=== PATIENT | male | born 1960 | race Caucasian/White ===

== ENCOUNTER → 2017-03-26 08:10 | Outpatient (CLI) | payer OTHER, SELFPAY ==
[2017-03-26 09:27] LABS: AST(SGOT) 21 U/L (15-37); Alanine Aminotransfer ALT/SGPT 26 U/L (16-61); Albumin, Serum 3.7 g/dL (3.2-5.0); Alkaline Phosphatase 65 U/L (45-117); Bilirubin, Direct 0.29 mg/dL (0.00-0.30); Cholesterol 176 mg/dL (200); Globulin 3.7 g/dL (2.2-4.2); High Density Lipoprotein 63 mg/dL; Protein, Total 7.4 g/dL (6.4-8.2); Triglycerides 70 mg/dL; Very Low Density Lipoprotein 14 mg/dL (5-40)
== END ==
PROVIDERS: Family Provider Family Medicine; PCP Family Medicine; Visit Provider Internal Medicine Cardiovascular Disease
DX: E78.5 Hyperlipidemia, unspecified (principal)
CPT/HCPCS: 36415; 80061; 80076

== ENCOUNTER → 2017-05-02 13:54 | Outpatient (CLI) | payer OTHER, SELFPAY ==
--- NOTE | 2017-05-02 13:55 | ECHOD_ITS ---
Reason For Study: CHF Procedure This was a 2D Doppler, Color Flow transthoracic echocardiogram. Exam performed in department. Left Ventricle Normal LV size. The estimated ejection fraction is 40 %. Mild to moderate global left ventricular systolic dysfunction. Unable to assess diastolic dysfunction. Septal motion consistent with IVCD. Right Ventricle Normal RV size. Normal systolic function. Atria Normal left atrium. Normal right atrium. Mitral Valve Normal mitral valve. Tricuspid Valve Normal tricuspid valve. Aortic Valve The aortic valve is not well visualized. Pulmonic Valve The pulmonic valve is not well visualized. Great Vessels Mildly dilated aortic root. The pulmonary artery is normal size. Normal inferior vena cava. Pericardium/Pleural No pericardial effusion. MMode/2D Measurements & Calculations LVIDd: 4.8 cm IVSd: 1.1 cm Ao root diam: 3.8 cm LVIDs: 3.3 cm LVPWd: 0.77 cm RVDd: 3.7 cm FS: 31.6 % LAV(MOD-bp): 52.7 ml EDV(MOD-sp4): 147.8 ml SV(MOD-sp4): 74.2 ml LAV(MOD-bp) Indexed: 26.1 ml/m2 ESV(MOD-sp4): 73.7 ml LAV(MOD-sp2): 45.5 ml EF(MOD-sp4): 50.2 % LAV(MOD-sp4): 48.5 ml LA A4 area: 17.1 cm2 RA A4 area: 14.3 cm2 Doppler Measurements & Calculations MV E max hal: 54.0 cm/sec Ao V2 max: 125.0 cm/sec LV V1 max: 104.0 cm/sec MV A max hal: 61.6 cm/sec Ao max P.3 mmHg LV V1 max P.3 mmHg MV E/A: 0.88 PA V2 max: 120.6 cm/sec Interpretation Summary Normal LV size. The estimated ejection fraction is 40 %. Mild to moderate global left ventricular systolic dysfunction. Septal motion consistent with IVCD. Mildly dilated aortic root. Compared to the previous there is mild improvement Ordering Physician: Denver Steiner/Jose Rafael Gaona Referring Physician: Jerad Liu Performed By: Della Sims RDCS
== END ==
PROVIDERS: Family Provider Family Medicine; PCP Family Medicine; Visit Provider Nurse Practitioner Family
DX: I42.8 Other cardiomyopathies (principal)
CPT/HCPCS: 93306

== ENCOUNTER → 2018-01-24 13:20 | Outpatient (CLI) | payer OTHER, SELFPAY ==
[2018-01-24 13:10] VITALS: BMI 28.3
[2018-01-24 14:42] LABS: BNP,B-Type NATRIURETIC PEPTIDE 26.8 pg/mL (0-100)
--- OUTSIDE RECORDS SUMMARY | 2018-03-12 17:48 | XMS RPT_ITS ---
:1960 Author Organization OHIP Support Name Relationship Address Phone KAMAR RHOADSE Unavailable [address] + [place] [address] SANCHEZ LUMBER Un[address] + [place] [address] VERONA, KAMAR Unavailable [address] + [place] [address] SANCHEZ LUMBER Un[address] + [place] [address] VERONA, KAMAR Unavailable [address] + [place] [address] SANCHEZ LUMBER Un[address] + [place] [address] VERONA, KAMAR Unavailable [address] + [place] [address] SANCHEZ LUMBER Un[address] + [place] [address] VERONA, KAMAR Unavailable [address] + [place] [address] SANCHEZ LUMBER Un[address] + [place] [address] VERONA, KAMAR Unavailable [address] + [place] [address] SANCHEZ LUMBER Un[address] + [place] [address] VERONA, KAMAR Unavailable [address] + [place] [address] SANCHEZ LUMBER Un[address] + [facility], [place] [address] VERONA, KAMAR Unavailable [address] + [place] [address] DANIEL SAM Unavailable [facility] [address] + [place] [address] Care Team Providers Name Role Phone Roof, Denver Aaron Attending Unavailable Brown, Jerad Referring Unavailable Roof, Denver Aaron Attending Unavailable Roof, Denver H Referring Unavailable Brown, Jerad Primary Care Unavailable Candelaria, [place] Attending Unavailable Candelaria, [place] Referring Unavailable Brown, Jerad Primary Care Unavailable PaytonLili keys Attending Unavailable Roof, Denver H Attending Unavailable Brown, Jerad Referring Unavailable Brown, Jerad Primary Care Unavailable Roof, Denver H Attending Unavailable Roof, Denver H Referring Unavailable Brown, Jerad Primary Care Unavailable Candelaria, Jose Rafael Attending Unavailable Roof, Denver H Referring Unavailable Candelaria, [place] Attending Unavailable Brown, Jerad Referring Unavailable PROBLEMS PROBLEMS DATE TYPE CONDITION / CODE ATTENDING STATUS SOURCE 02/15/2018 Unknown I42.8 - Other Roof, Denver Aaron Active [facility] cardiomyopathies / Community I42.8(ICD-10) Hospital Repository 01/24/2018 Unknown R06.09 - Other forms Roof, Denver Aaron Active [place] of dyspnea / Community R06.09(ICD-10) Hospital Repository PROCEDURES PROCEDURES No Procedure Records FoundRESULTS RESULTS BNP,B-TYPE NATRIURETIC Collected: 01/24/2018 Status: F Source: [place] PEPTIDE 1:23 PM [facility] REPOSITORY TYPE CODE TESTS RESULT OUT OF RANGE REFERENCE UNITS LAB L503.6620 0-100 pg/mL Normal B-TYPE 26.8 HANH PEP Performed By: #### L503.6620 #### [facility] [address] [place], [place], [address] CARDIOLOGY VISIT Observed: 11/10/2017 Status: F Source: [facility] REPORT 4:02 PM [facility] REPOSITORY [facility] [address] [place] [address] OFFICE VISIT Date of Service: 11/01/17 MR#: [id number] Acct: [id number] Name: GEETHA RHOADES Rep #: [id number] : 1960 Provider: Jose Rafael Gaona MD Age/Sex: 57/M [place] [facility] [place]: Signed HPI HPI Chief Complaint: Follow-up visit. Details: GEETHA RHOADES, is a 57 M who presents to the office today for a follow-up visit. As you know he has a history of nonischemic cardiomyopathy left bundle branch block and hyperlipidemia. He had presented in July 2016 and undergone a cardiac catheterization at that time. He has had titration of his medications but has done well. He tells me that he has not had any neck arm or jaw discomfort suggest angina no dizziness no diaphoresis no near syncope or syncope. He has been compliant with all his medications. His physical exam today demonstrates clear lung corona regular rate and rhythm no pedal edema his blood pressure is under excellent control. Intake Vital Signs11/01/17 Height 5 ft 9 in 11/01/17 Weight: 191 lb 11/01/17 Body Mass Index (BMI) 28.2 11/01/17 Blood Pressure 128/72 H 11/01/17 Blood Pressure Location Lt brachial Intake Visit Reasons: 6 M [place] Operator Required: No Accompanied by: none Is patient in pain?: No Allergies amoxicillin [From Augmentin] Allergy (Verified 11/01/17 14:43) Unknown clavulanic acid [From Augmentin] Allergy (Verified 11/01/17 14:43) Unknown Medications Fluticasone/Salmeterol [Advair 500/50 Mcg Diskus] 1 puff INHALATION DAILY 05/11/16 [History Confirmed 11/01/17] Herbal Complex No.174 [Echinacea-Goldenseal] 1 cap PO DAILY 05/11/16 [History Confirmed 11/01/17] cetirizine 10 mg tablet 10 mg PO QDAY 04/06/17 [History Confirmed 11/01/17] lisinopril 2.5 mg tablet 2.5 mg PO QDAY #30 tab 07/12/17 [Rx Confirmed 11/01/17] atorvastatin 10 mg tablet 10 mg PO QDAY #90 tab 09/12/17 [Rx Confirmed 11/01/17] carvedilol 12.5 mg tablet 12.5 mg PO BID #120 tab 11/01/17 [Rx Confirmed 11/01/17] multivitamin tablet 1 tab PO DAILY 11/01/17 [History Confirmed 11/01/17] [facility] Medical History Dilated cardiomyopathy (Chronic) Hyperlipidemia (Chronic) Left bundle branch block (Chronic) Abnormal electrocardiogram (Chronic) Family history of ischemic heart disease (Acute) Family history of ischemic heart disease (Inactive) Surgical History History of eye surgery (Resolved) History of hernia repair (Resolved) History of nasal septoplasty (Resolved) Family History Father Hypertension Brother Myocardial infarction CAD (coronary artery disease) Mother CHF (congestive heart failure) Other Family history of ischemic heart disease Social History Smoking Status: Former smoker alcohol intake: current substance use type: does not use ROS Const Const: Negative for fatigue, weakness, body ache, fever(s), headache(s), chills, frequent falls, night sweats, daytime sleepiness, difficulty sleeping, excessive sweating, weight gain, weight loss, increased appetite, poor appetite, anorexia or other Eyes Eyes: Negative for blind spots, loss of peripheral vision, transient loss of vision, blurry vision, change in vision, double vision, floaters, tunnel vision or other ENT ENT: Negative for headache(s) or balance problems Cardio Chest Pain: No Resp Respiratory: Negative for SOB with activity, SOB at rest, SOB orthopnea\SOB lying down, Cough, Coughing up blood/hemoptysis, chest congestion, pain on inspiration, snoring, stridor, wheezing, crackles, paroxysmal nocturnal dyspnea or other GI GI: Negative nausea, vomiting, heartburn, constipation, belching, bloating, cramping, vomiting blood/hematemesis, bright, red blood in stools, black,tarry stools, loose stools, Difficulty Swallowing or other Musc Musc: Negative for muscle aches/ myalgia, muscle weakness, joint pain or balance problems Neuro Neuro: Negative for blurry vision, double vision, weakness, headache(s) or frequent falls Endo Endo: Negative for fatigue or excessive sweating Cardiology Exam Const Appearance: cooperative, healthy appearing, well developed, well groomed and no acute distress Nutritional Appearance: well nourished and average body habitus Orientation: alert, awake and oriented x3 Head Head: normal to inspection, normocephalic and atraumatic Ears: hearing grossly normal bilaterally and external ears normal Nose: external nose normal, nasal mucous membranes and turbinates normal, nares normal, septum normal, no nasal discharge Face and Sinus: face symmetric Mouth: oral mucosae normal, tongue normal, oropharynx normal and moist mucous membranes Teeth and gingiva: dentition normal Throat: posterior oropharynx normal, tonsils normal and uvula midline Eyes General: appearance normal, both eyes and all related structures Eyelids: eyelids normal Conjunctivae: conjunctivae normal Pupils: PERRL, normal by confrontation and accommodation normal EOM: EOM intact bilaterally Neck Neck: normal visual inspection, trachea midline and no JVD JVD: +5 Carotids: normal carotid upstroke and bounding pulses Chest Chest inspection: normal inspection of the chest, symmetric chest movement and normal respiratory effort Auscultation: Bilateral: Clear to Auscultation Cardio Palpation: normal PMI Rate: regular rate Rhythm: regular rhythm Heart sounds: S1 normal, S2 normal and normal, physiologic split S2; negative rub, gallop or murmur GI GI: normal to inspection, soft, no hepatosplenomegaly and bowel sounds present Neuro General: alert, awake, oriented x3, no focal sensory deficit, gait normal and moves all extremities Skin Skin: no rashes or lesions noted Extremities Pulses: Normal: Right Femoral Pulse, Left Femoral Pulse, Right Dorsalis Pedis Pulse, Left Dorsalis Pedis Pulse, Right Posterior Tibial Pulse, Left Posterior Tibial Pulse, Right Radial Pulse, Left Radial Pulse Lower Extremity Edema: None: Bilateral Musculoskel Musculoskeletal: No joint tenderness Psych Psychological: normal affect Assessment AND Plan 1. Dilated cardiomyopathy I42.0 Plan He does have a history of a dilated cardiomyopathy his last echocardiogram in April of this year demonstrated an ejection fraction of 40%. This was an improvement compared to prior. He has not had any heart failure symptoms and the plan will be to continue the same medications but titrate up the Coreg further. I would like him to be seen in 3 months and if he has tolerated his medications then his lisinopril can be increased to 5 mg and all his Coreg increased to 25 mg twice a day. He was seen by nurse practitioner Denver Steiner at that time. I like to see him again in 6 months and at that time once again repeat his echocardiogram. 2. Hyperlipidemia E78.5 Plan He does have a history of hyperlipidemia and his most recent lipid profile demonstrated a cluster 176, LDL of 99, HDL 63 and liver function tests remain normal. Thank you for allowing me to participate in the care of your patient. Please don't hesitate to call if any issues arise 3. Left bundle branch block I44.7 Plan He does have a chronic left bundle branch block which would be monitored as we increase his beta-elijah. No other changes will be made. Plan Detail Other Medications New: Discontinued: carvedilol give with food (meal/snack): This is a dose inc6.25 mg PO BID 180 tabs 3RF rease ordered after heart cath Discontinued Reason: Order Changed Follow Up 6 Months Coding Level of Care Code Off vis,est,level 3 Diagnoses Dilated cardiomyopathy I42.0 Hyperlipidemia E78.5 Left bundle branch block I44.7 Coding Level of Care Code Off vis,est,level 3 Diagnoses Dilated cardiomyopathy I42.0 Hyperlipidemia E78.5 Left bundle branch block I44.7 11/10/17 1602 <Electronically signed by Jose Rafael Gaona MD> Date Jose Rafael Gaona MD Cosigner Signature: Date (if applicable) CC: md Jerad Liu ECHOCARDIOGRAM COMPLETE Observed: 05/02/2017 Status: F Source: [place] 4:38 PM [facility] REPOSITORY [facility] Cardiovascular Services [address] [place] [address] Echo Complete 05/02/17 1426 MR#: [id number] Acct: [id number] Name: GEETHA RHOADES Rep #: [id number] : 1960 56 From: Jose Rafael Gaona MD Attending Dr: Denver Steiner NP Status: REG CLI Ordering Dr: Denver Steiner FACILITY MAINTENANCE SUPERVISOR-C Date: 05/02/17 Location: [facility] Sex: M C Admitted: Reason For Study: CHF Procedure This was a 2D Doppler, Color Flow transthoracic echocardiogram. Exam performed in department. Left Ventricle Normal LV size. The estimated ejection fraction is 40 %. Mild to moderate global left ventricular systolic dysfunction. Unable to assess diastolic dysfunction. Septal motion consistent with IVCD. Right Ventricle Normal RV size. Normal systolic function. Atria Normal left atrium. Normal right atrium. Mitral Valve Normal mitral valve. Tricuspid Valve Normal tricuspid valve. Aortic Valve The aortic valve is not well visualized. Pulmonic Valve The pulmonic valve is not well visualized. Great Vessels Mildly dilated aortic root. The pulmonary artery is normal size. Normal inferior vena cava. Pericardium/Pleural No pericardial effusion. MMode/2D Measurements AND Calculations LVIDd: 4.8 cm IVSd: 1.1 cm Ao root diam: 3.8 cm LVIDs: 3.3 cm LVPWd: 0.77 cm RVDd: 3.7 cm FS: 31.6 % LAV(MOD-bp): 52.7 ml EDV(MOD-sp4): 147.8 ml SV(MOD-sp4): 74.2 ml LAV(MOD-bp) Indexed: 26.1 ml/m2 ESV(MOD-sp4): 73.7 ml LAV(MOD-sp2): 45.5 ml EF(MOD-sp4): 50.2 % LAV(MOD-sp4): 48.5 ml LA A4 area: 17.1 cm2 RA A4 area: 14.3 cm2 Doppler Measurements AND Calculations MV E max hal: 54.0 cm/sec Ao V2 max: 125.0 cm/sec LV V1 max: 104.0 cm/sec MV A max hal: 61.6 cm/sec Ao max P.3 mmHg LV V1 max P.3 mmHg MV E/A: 0.88 PA V2 max: 120.6 cm/sec Interpretation Summary Normal LV size. The estimated ejection fraction is 40 %. Mild to moderate global left ventricular systolic dysfunction. Septal motion consistent with IVCD. Mildly dilated aortic root. Compared to the previous there is mild improvement Ordering Physician: Denver Steiner/Jose Rafael Gaona Referring Physician: Jerad Liu Performed By: Della Sims RDCS 05/02/17 1638 Date Jose Rafael Gaona MD CC: HUSSEIN Liu Date Dictated: 05/02/17 1426 Date Transcribed: 05/02/178 Digital Controls Technical Officer: Signed CARDIOLOGY VISIT Observed: 04/12/2017 Status: F Source: [place] REPORT 7:25 PM [facility] REPOSITORY [facility] [address] [place] [address] OFFICE VISIT Date of Service: 04/12/17 MR#: [id number] Acct: [id number] Name: GEETHA RHOADES Rep #: [id number] : 1960 Provider: HUSSEIN Steiner Age/Sex: 56/M [place] [facility] [place]: Signed HPI HPI Details: GEETHA RHOADES, is a 56 M who presents to the office today for a cardiovascular outpatient follow-up. Patient has a history of nonischemic cardiomyopathy, left bundle branch block, and hyperlipidemia. Pt. denies chest, arm, jaw, or neck discomfort. His exercise tolerance is stable via cutting fire wood. Pt. denies symptoms of palpitations, lightheadedness, dizziness, near syncope, or syncopal episodes. Pt. denies edema or claudication issues. Pt. denies orthopnea, PND, fever, chills, blood in urine, blood in stool, myalgia, or unexplainable fatigue. Pt. states continual shortness of breath with activity, but is unsure if it truly worsened or he is just more cognitive of it. Intake Vital Signs04/12/17 Height 5 ft 9 in 04/12/17 Weight: 191 lb 04/12/17 Body Mass Index (BMI) 28.2 04/12/17 Blood Pressure 130/80 Intake Visit Reasons: 6 M FU Allergies amoxicillin [From Augmentin] Allergy (Verified 07/22/16 15:11) Unknown clavulanic acid [From Augmentin] Allergy (Verified 07/22/16 15:11) Unknown Medications Fluticasone/Salmeterol [Advair 500/50 Mcg Diskus] 1 puff INHALATION DAILY 05/11/16 [History Confirmed 04/06/17] Herbal Complex No.174 [Echinacea-Goldenseal] 1 cap PO DAILY 05/11/16 [History Confirmed 04/12/17] Carvedilol [Coreg] 3.125 mg PO BID 07/22/16 [History Confirmed 04/06/17] atorvastatin 10 mg tablet 10 mg PO QDAY 04/06/17 [History Confirmed 04/06/17] cetirizine 10 mg tablet 10 mg PO QDAY 04/06/17 [History Confirmed 04/06/17] lisinopril 2.5 mg tablet 2.5 mg PO QDAY 04/06/17 [History Confirmed 04/06/17] PFSH Medical History Dilated cardiomyopathy (Chronic) Hyperlipidemia (Chronic) Left bundle branch block (Chronic) Abnormal electrocardiogram (Chronic) Family history of ischemic heart disease (Acute) Family history of ischemic heart disease (Inactive) Surgical History History of eye surgery (Resolved) History of hernia repair (Resolved) History of nasal septoplasty (Resolved) Family History Father Hypertension Brother Myocardial infarction CAD (coronary artery disease) Mother CHF (congestive heart failure) Other Family history of ischemic heart disease Social History Smoking Status: Former smoker alcohol intake: current substance use type: does not use ROS Const Const: Negative for fatigue, weakness, body ache, fever(s) or chills ENT ENT: Negative for dizziness Cardio Chest Pain: No Palpitations: No Edema: None Muscle aches with walking: None Resp Respiratory: Positive for SOB with activity; negative for SOB at rest, SOB orthopnea\SOB lying down or paroxysmal nocturnal dyspnea GI GI: Negative nausea, black,tarry stools, bright, red blood in stools or vomiting blood/hematemesis : Negative for hematuria or frequent nighttime urination/ nocturia Musc Musc: Negative for muscle aches/ myalgia Neuro Neuro: Negative for weakness, dizziness, lightheadedness, near syncope, syncope or orthostatic symptoms Endo Endo: Negative for fatigue Supplemental Info Heart catheterization from July 2016 showed an ejection fraction of 35%, angiographically normal left main, LAD, LCx, and RCA. Echocardiogram from March 2016 showed an ejection fraction of 30%, septal motion consistent with IVCD, systolic anterior motion of the mitral valve, and mild tricuspid valve insufficiency. Assessment AND Plan 1. Non-ischemic cardiomyopathy I42.8 Plan - ESTUARDO Pedersen Heart catheterization from July 2016 showed an ejection fraction of 35%, angiographically normal left main, LAD, LCx, and RCA. Patient states his blood pressure at home has ranged with systolics in the low 100s. Due to this his medications will not be adjusted at this time. A repeat echocardiogram will be done to evaluate ejection fraction. If his ejection fraction remains low, we will consider cautious up titration of medication. If his ejection fraction has improved he will be asked to continue to follow-up with primary care physician for other possible sources of shortness of breath. Patient will continue with current medications which includes a elijah and ALDO inhibitor. Orders Orders: 2. Non-rheumatic tricuspid valve insufficiency I36.1 Plan - ESTUARDO Pedersen Echocardiogram from March 2016 showed mild tricuspid valve insufficiency. This too will be further evaluated with a repeat echocardiogram. We will wait for results of the echocardiogram for further recommendation. 3. Mixed hyperlipidemia E78.2 Plan - ESTUARDO Pedersen Laboratory Tests Triglycerides 70 Cholesterol 176 LDL Cholesterol 99 HDL Cholesterol 63 Patient will continue with current cholesterol lowering medication. He will have repeat lipid and liver profile in approximately 6 months. Plan Detail Additional Comments - ESTUARDO Pedersen Discussed the above patient with Dr. Gaona, he agrees with the plan of care. Thank you for allowing us to participate in the patients plan of care, if you have any questions please do not hesitate to call. This note was generated using a voice recognition system and there may be incorrect words, spelling or punctuation that were not noted when reviewing the office note prior to saving. Follow Up 6 Months ([facility] FORMER) Coding Level of Care Code Off vis,est,level 3 Diagnoses Non-ischemic cardiomyopathy I42.8 Non-rheumatic tricuspid valve insufficiency I36.1 Mixed hyperlipidemia E78.2 Hyperlipidemia type: mixed hyperlipidemia Coding Level of Care Code Off vis,est,level 3 Diagnoses Non-ischemic cardiomyopathy I42.8 Non-rheumatic tricuspid valve insufficiency I36.1 Mixed hyperlipidemia E78.2 Hyperlipidemia type: mixed hyperlipidemia 04/12/17 1527 <Electronically signed by Denver ARREDONDOC> Date Denver Steiner FACILITY MAINTENANCE SUPERVISOR-C 04/12/171924<Electronically signed by Jose Rafael Gaona MD> Cosigner Signature: Date (if applicable) Jose Rafael Gaona MD CC: Jerad Liu LIVER PROFILE Collected: 03/26/2017 Status: F Source: ZAFAR 8:17 AM [facility] REPOSITORY Order Comment: Order Date: 03/31/16 Order Info: [id number] - *Hepatic Function Panel Order Info: [id number] - *Lipid Profile CC PCP Comments: 12 hours fasting, may have water. TYPE CODE TESTS RESULT OUT OF RANGE REFERENCE UNITS LAB L501.1500 6.4-8.2 g/dL Normal T PROT 7.4 LAB L501.1800 3.2-5.0 g/dL Normal ALB 3.7 LAB L501.1950 2.2-4.2 g/dL Normal GLOB 3.7 LAB L501.4100 15-37 U/L Normal AST 21 LAB L501.4305 45-117 U/L Normal ALK P 65 LAB L501.4405 16-61 U/L Normal ALT 26 Result Comment: Please note revised ALT reference range effective 2017. LAB L501.4600 0.20-1.00 mg/dL High T BILI 1.30 LAB L501.4700 0.00-0.30 mg/dL Normal D BILI 0.29 Performed By: #### L500.3400 #### [facility] [address] [place], [address] LIPID PROFILE Collected: 03/26/2017 Status: F Source: ZAFAR 8:17 AM [facility] REPOSITORY Order Comment: Order Date: 03/31/16 Order Info: [id number] - *Hepatic Function Panel Order Info: [id number] - *Lipid Profile CC PCP Comments: 12 hours fasting, may have water. TYPE CODE TESTS RESULT OUT OF RANGE REFERENCE UNITS LAB L501.4900 200 mg/dL Normal CHOL 176 Result Comment: <200 mg/dL Desirable 200-240 mg/dL Borderline >240 mg/dL High Risk LAB L501.5000 mg/dL Normal TRIG 70 Result Comment: The drugs N-Acetylcysteine and Metamizole may falsely depress this assay. Serum Triglycerides Reference Interval Normal <150 mg/dL Borderline high 150 - 199 mg/dL High 200 - 499 mg/dL Very High > or = 500 mg/dL LAB L501.6400 mg/dL Normal HDL 63 Result Comment: The drugs N-Acetylcysteine and Metamizole may falsely depress this assay. Reference Range HDL <40 mg/dL Low HDL Cholesterol HDL >or= 60 mg/dL High HDL Cholesterol LAB L501.6500 0-130 mg/dL Normal LDL 99 LAB L501.6600 5-40 mg/dL Normal VLDL 14 Performed By: #### L500.4100 #### [facility] [address] [place], [address] ALLERGIES ALLERGIES DATE TYPE / CODE NAME / CODE REACTION SEVERITY SOURCE 02/15/2018 Drug lisinopril/R17820 [place] [facility] Allergy/416 0658(RXNORM) cough Community 093149([facility] ED CT) Repository 11/01/2017 Drug clavulanic Unknown Unknown [facility] Allergy/416 acid/[id number](R [facility] 960455[facility] Rep[facility] 11/01/2017 Drug amoxicillin/F0060 Unknown Unknown [place] Allergy/416 45134(RXNORM) [facility] 041568([facility] ED CT) Repository ENCOUNTERS ENCOUNTERS ADMIT/DISCHARGE ACCOUNT ADMITTING ENCOUNTER LOCATION SOURCE NUMBER CLASS 01/24/2018 [id number] Ambulatory [facility] 2 [facility] ing:LAB Repository 01/24/2018/ [id number] Ambulatory BMSBuilding:B [facility] 8 9 [place] Repository 11/01/2017/ [id number] Ambulatory BMSBuilding:B [place] 8 3 [place] Repository 05/02/2017 [id number] Ambulatory [place] [facility] 3 [facility] ing:[facility] Repository 05/02/2017 [id number] Ambulatory BMSBuilding:W [place] 8 [facility] Repository 04/12/2017/ [id number] Ambulatory BMSBuilding:B [facility] 8 6 [place] Repository 04/12/2017 [id number] Ambulatory BMSBuilding:B [place] 7 [place] Repository 03/26/2017 [id number] Ambulatory [place] 1 [facility] ing:LAB Repository PAYERS PAYERS ENCOUNTER GUARANTOR PAYER SUBSCRIBER SOURCE 01/24/2018 GEETHA Kennedy Primary GEETHA Calvillooster [id number] [facility] icy Number: [id number] [id number] [place]ository [place] [address]Qgx: Date:[id number] [address] [place] [address] (DF) [address]WP: 01/24/2018 Secondary NOT GIVENUNK [facility] Insurance:SELF PAY [facility] Number: Effective Repository Date:2018-01-24 01/24/2018 GEETHA Kennedy Primary GEETHA Calvillooster [id number] TR [facility] [address] icy Number: [id number] [address]Zis: [id number] Repository Date:[id number] [address] [address]LA: 01/24/2018 Secondary NOT GIVENUNK [place] Insurance:SELF PAY [facility] Number: Effective Repository Date:2018-01-24 11/01/2017 GEETHA Kennedy Primary GEETHA Stephen [id number] TR Insurance:[employer]ULTCAREPol WOODRINGDOB: [address] Number: [id number] General Hospital [address]Adj: [id number] Repository Date:[id number] [address] [address] [address]RM: 11/01/2017 Secondary NOT GIVENUNK [place] Insurance:SELF PAY [facility] Number: Effective Repository Date:2017-11-01 05/02/2017 GEETHA W Primary GEETHA Stephen [id number] TR Insurance:AULTCAREPol WOODRINGDOB: [address] Number: [id number] General Hospital [address]Cxg: [id number] Repository Date:6464-38-20[address] () [address] [address]BQ: 05/02/2017 Secondary NOT GIVENUNK Zafar Insurance:SELF PAY [facility] Number: Effective Repository Date:2017-04-12 05/02/2017 GEETHA W Primary GEETHA Stephen [id number] TR Insurance:AULTCAREPol WOODRINGDOB: [address] icy Number: [id number] General Hospital [address]Tog: [id number] Repository Date:0247-00-71[address] () [address] [address]AS: 05/02/2017 Secondary NOT GIVENUNK Zafar Insurance:SELF PAY [facility] Number: Effective Repository Date:2017-05-02 04/12/2017 GEETHA W Primary GEETHA Stephen [id number] TR Insurance:AULTCAREPol WOODRINGDOB: [place], icy Number: [id number] General Hospital [address]Ynv: [id number] Repository Date:4592-95-75WS [address] () [address] [address]SY: 04/12/2017 Secondary NOT GIVENUNK Zafar Insurance:SELF PAY [facility] Number: Effective Repository Date:2017-01-22 04/12/2017 Geetha W Primary Geetha Stephen [id number] TR Insurance:AULTCAREPol WoodringDOB: [address] Number: [id number] General Hospital [address]Xfs: [id number] Repository Date:4441-79-18PX [address] () [address] [address]SW: 04/12/2017 Secondary NOT GIVENUNK [place] Insurance:SELF PAY [facility] Number: Effective Repository Date:2017-04-12 03/26/2017 Geetha Kennedy Primary Geetha Stephen [id number] TR Insurance:AULTCAREPol WoodringDOB: [address] Number: [id number] General Hospital [address]Qjp: [id number] Repository Date:7397-84-00RO [address] () [address] [address]GF: 03/26/2017 Secondary NOT GIVENUNK [place] Insurance:SELF PAY [facility] Number: Effective Repository Date:2017-03-26
== END ==
PROVIDERS: Family Provider Family Medicine; PCP Family Medicine; Referring Provider Nurse Practitioner Family; Visit Provider Nurse Practitioner Family
DX: I42.8 Other cardiomyopathies (principal); R06.09 Other forms of dyspnea
CPT/HCPCS: 36415; 83880

== ENCOUNTER → 2018-05-02 08:06 | Outpatient (CLI) | payer OTHER, SELFPAY ==
[2018-04-18 13:37] VITALS: BMI 28.3
--- NOTE | 2018-05-02 08:08 | ECHOD_ITS ---
Reason For Study: DYSPNEA Procedure This was a 2D Doppler, Color Flow transthoracic echocardiogram. Exam performed in department. Left Ventricle Normal LV size. The estimated ejection fraction is 45 %. Stage 1 diastolic dysfunction. No regional wall motion abnormalities noted. Right Ventricle Normal RV size. Normal systolic function. Atria Normal left atrium. Normal right atrium. Mitral Valve Normal mitral valve. Tricuspid Valve Normal tricuspid valve. Aortic Valve Trisinus/trileaflet aortic valve. Pulmonic Valve Normal pulmonic valve. Great Vessels Normal aortic root. The pulmonary artery is normal size. Normal inferior vena cava. Pericardium/Pleural No pericardial effusion. MMode/2D Measurements & Calculations LVIDd: 4.6 cm IVSd: 1.0 cm Ao root diam: 3.2 cm LVIDs: 3.5 cm LVPWd: 1.1 cm RVDd: 3.8 cm FS: 24.6 % LAV(MOD-bp): 42.1 ml LA A4 area: 15.1 cm2 LA dimension(2D): 3.1 cm LAV(MOD-bp) Indexed: 21.0 ml/m2 LAV(MOD-sp2): 44.9 ml LAV(MOD-sp4): 37.1 ml RA A4 area: 17.3 cm2 Time Measurements MV dec time: 0.27 sec Doppler Measurements & Calculations MV E max santiago: 37.1 cm/sec Lat Peak E' Santiago: 7.2 cm/sec Med Peak E' Santiago: 5.6 cm/sec MV A max santiago: 55.7 cm/sec E/E' lat: 5.1 E/E' med: 6.7 MV E/A: 0.67 Ao V2 max: 119.6 cm/sec LV V1 max: 91.1 cm/sec TR max santiago: 192.7 cm/sec Ao max P.7 mmHg LV V1 max P.3 mmHg TR max P.0 mmHg Interpretation Summary Normal LV size. The estimated ejection fraction is 45 %. Stage 1 diastolic dysfunction. The global longitudinal strain = -14.2% (abnormal). Ordering Physician: Jose Rafael Gaona Referring Physician: FERNY ROMEO Performed By: Belinda Phelan RDCS, RVT
== END ==
PROVIDERS: Family Provider Family Medicine; PCP Family Medicine; Referring Provider Internal Medicine Cardiovascular Disease; Visit Provider Internal Medicine Cardiovascular Disease
DX: I42.0 Dilated cardiomyopathy (principal)
CPT/HCPCS: 93306

== ENCOUNTER → 2018-11-04 08:02 | Outpatient (CLI) | payer OTHER, SELFPAY ==
[2018-10-24 08:32] VITALS: BMI 29.0
[2018-11-04 10:32] LABS: AST(SGOT) 24 U/L (15-37); Alanine Aminotransfer ALT/SGPT 25 U/L (16-61); Albumin, Serum 3.8 g/dL (3.2-5.0); Alkaline Phosphatase 65 U/L (45-117); Bilirubin, Direct 0.21 mg/dL (0.00-0.30); Cholesterol 201 mg/dL (200); Globulin 4.1 g/dL (2.2-4.2); High Density Lipoprotein 60 mg/dL; Protein, Total 7.9 g/dL (6.4-8.2); Triglycerides 83 mg/dL; Very Low Density Lipoprotein 17 mg/dL (5-40)
[2018-11-04 12:00] LABS: PSA,Total - Annual Screen 0.52 ng/mL (0.00-4.00)
== END ==
PROVIDERS: Urology; Family Provider Family Medicine; PCP Family Medicine; Referring Provider Physician Assistant Medical; Visit Provider Physician Assistant Medical
DX: E78.5 Hyperlipidemia, unspecified (principal); Z12.5 Encounter for screening for malignant neoplasm of prostate
CPT/HCPCS: 36415; 80061; 80076; 84153; G0103

== ENCOUNTER → 2019-08-14 09:45 | Outpatient (CLI) | payer OTHER, SELFPAY ==
[2019-08-14 08:20] VITALS: BMI 28.5
[2019-08-14 11:21] LABS: AST(SGOT) 31 U/L (15-37); Alanine Aminotransfer ALT/SGPT 34 U/L (16-61); Albumin, Serum 3.9 g/dL (3.2-5.0); Alkaline Phosphatase 72 U/L (45-117); Bilirubin, Direct 0.19 mg/dL (0.00-0.30); Cholesterol 226 mg/dL (200); Globulin 4.3 g/dL (2.2-4.2); High Density Lipoprotein 53 mg/dL; Protein, Total 8.2 g/dL (6.4-8.2); Triglycerides 355 mg/dL; Very Low Density Lipoprotein 71 mg/dL (5-40)
== END ==
PROVIDERS: PCP Family Medicine; Referring Provider Internal Medicine Cardiovascular Disease; Visit Provider Internal Medicine Cardiovascular Disease
DX: E78.5 Hyperlipidemia, unspecified (principal)
CPT/HCPCS: 36415; 80061; 80076

== ENCOUNTER → 2019-09-04 07:46 | Outpatient (CLI) | payer OTHER, SELFPAY ==
[2019-08-14 08:20] VITALS: BMI 28.5
--- NOTE | 2019-09-04 07:47 | ECHOD_ITS ---
Reason For Study: Abn. EKG, Non-Isch CMP Procedure This was a 2D Doppler, Color Flow transthoracic echocardiogram. Exam performed in department. Left Ventricle Normal LV size. The estimated ejection fraction is 35 %. Septal motion consistent with IVCD. Stage 1 diastolic dysfunction. There is moderate global hypokinesis of the left ventricle. Right Ventricle Normal RV size. Normal systolic function. Atria Normal left atrium. Normal right atrium. Mitral Valve Normal mitral valve. Tricuspid Valve Normal tricuspid valve. Unable to estimate RV systolic pressure due to inadequate jet, pulmonary artery pressure probably normal. Aortic Valve Normal aortic valve. Trisinus/trileaflet aortic valve. Pulmonic Valve Normal pulmonic valve. Great Vessels Normal aortic root. Pericardium/Pleural No pericardial effusion. MMode/2D Measurements & Calculations LVIDd: 4.4 cm IVSd: 1.3 cm Ao root diam: 3.6 cm LVIDs: 3.4 cm LVPWd: 1.1 cm RVDd: 3.7 cm FS: 24.2 % LAV(MOD-bp): 34.7 ml LA A4 area: 12.7 cm2 LA dimension(2D): 3.6 cm LAV(MOD-bp) Indexed: 17.1 ml/m2 LAV(MOD-sp2): 43.3 ml LAV(MOD-sp4): 26.5 ml RA A4 area: 13.8 cm2 Doppler Measurements & Calculations MV E max santiago: 32.6 cm/sec Lat Peak E' Santiago: 3.8 cm/sec Med Peak E' Santiago: 4.1 cm/sec MV A max santiago: 46.6 cm/sec E/E' lat: 8.6 E/E' med: 8.0 MV E/A: 0.70 Ao V2 max: 84.7 cm/sec PA V2 max: 100.0 cm/sec Ao max P.9 mmHg Interpretation Summary Normal LV size. The estimated ejection fraction is 35 %. Septal motion consistent with IVCD. There is moderate global hypokinesis of the left ventricle. Stage 1 diastolic dysfunction. Compared to previous study, the left ventricular systolic function has worsened.. Ordering Physician: Jose Rafael Gaona Referring Physician: Jerad Liu MD Performed By: Mary Canas RDCS and Student
== END ==
PROVIDERS: PCP Family Medicine; Referring Provider Internal Medicine Cardiovascular Disease; Visit Provider Internal Medicine Cardiovascular Disease
DX: I42.8 Other cardiomyopathies (principal)
CPT/HCPCS: 93306

== ENCOUNTER → 2019-12-11 09:30 | Outpatient (CLI) | payer OTHER, SELFPAY ==
[2019-08-14 08:20] VITALS: BMI 28.5
--- NOTE | 2019-12-11 09:31 | ECHOL_ITS ---
Reason For Study: CARDIOMYOPATHY Procedure This was a limited 2D transthoracic echocardiogram. Exam performed in department. Left Ventricle Normal LV size. Septal motion consistent with IVCD. The estimated ejection fraction is 50 %. Left ventricular systolic function is lower limits of normal. No regional wall motion abnormalities noted. Right Ventricle Normal RV size. Normal systolic function. Atria Normal left atrium. Normal right atrium. Mitral Valve Normal mitral valve. Tricuspid Valve Normal tricuspid valve. Aortic Valve Normal aortic valve. Trisinus/trileaflet aortic valve. Pulmonic Valve Normal pulmonic valve. Great Vessels Normal aortic root. The pulmonary artery is normal size. Normal inferior vena cava. Pericardium/Pleural No pericardial effusion. MMode/2D Measurements & Calculations LVIDd: 4.9 cm IVSd: 0.92 cm Ao root diam: 3.3 cm LVIDs: 3.6 cm LVPWd: 0.93 cm LA dimension: 3.5 cm FS: 25.8 % LAV(MOD-bp): 43.6 ml LA A4 area: 16.0 cm2 RA A4 area: 10.9 cm2 LAV(MOD-bp) Indexed: 21.4 ml/m2 LAV(MOD-sp2): 44.9 ml LAV(MOD-sp4): 36.5 ml Interpretation Summary Normal LV size. Septal motion consistent with IVCD. The estimated ejection fraction is 50 %. Left ventricular systolic function is lower limits of normal. Compared to previous study, the left ventricular systolic function has improved.. Ordering Physician: Jose Rafael Gaona Referring Physician: FERNY ROMEO Performed By: Belinda Phelan, JENNY, RVT
[2019-12-11 11:13] LABS: AST(SGOT) 19 U/L (15-37); Alanine Aminotransfer ALT/SGPT 22 U/L (16-61); Albumin, Serum 3.9 g/dL (3.2-5.0); Alkaline Phosphatase 66 U/L (45-117); Bilirubin, Direct 0.27 mg/dL (0.00-0.30); Cholesterol 197 mg/dL (200); High Density Lipoprotein 58 mg/dL; Protein, Total 7.9 g/dL (6.4-8.2); Triglycerides 90 mg/dL; Very Low Density Lipoprotein 18 mg/dL (5-40)
== END ==
PROVIDERS: PCP Family Medicine; Referring Provider Internal Medicine Cardiovascular Disease; Visit Provider Internal Medicine Cardiovascular Disease
DX: I44.7 Left bundle-branch block, unspecified (principal); I42.8 Other cardiomyopathies; E78.5 Hyperlipidemia, unspecified; E78.00 Pure hypercholesterolemia, unspecified
CPT/HCPCS: 36415; 80061; 80076; 93308

== ENCOUNTER → 2020-08-16 07:08 | Outpatient (CLI) | payer OTHER, SELFPAY ==
[2020-08-12 08:45] VITALS: BMI 29.7
[2020-08-16 08:11] LABS: AST(SGOT) 29 U/L (15-37); Alanine Aminotransfer ALT/SGPT 23 U/L (16-61); Albumin, Serum 3.8 g/dL (3.2-5.0); Alkaline Phosphatase 62 U/L (45-117); Bilirubin, Direct 0.24 mg/dL (0.00-0.30); Cholesterol 190 mg/dL (200); Globulin 3.9 g/dL (2.2-4.2); High Density Lipoprotein 55 mg/dL; Protein, Total 7.7 g/dL (6.4-8.2); Triglycerides 121 mg/dL; Very Low Density Lipoprotein 24 mg/dL (5-40)
== END ==
PROVIDERS: PCP Family Medicine; Referring Provider Internal Medicine Cardiovascular Disease; Visit Provider Internal Medicine Cardiovascular Disease
DX: E78.00 Pure hypercholesterolemia, unspecified (principal)
CPT/HCPCS: 36415; 80061; 80076

== ENCOUNTER → 2021-08-08 | Outpatient (CLI) | payer OTHER, SELFPAY ==
[2021-08-08 07:54] LABS: AST(SGOT) 21 U/L (15-37); Alanine Aminotransfer ALT/SGPT 22 U/L (16-61); Albumin, Serum 3.7 g/dL (3.2-5.0); Alkaline Phosphatase 58 U/L (45-117); Bilirubin, Direct 0.29 mg/dL (0.00-0.30); Cholesterol 185 mg/dL (200); Globulin 3.9 g/dL (2.2-4.2); High Density Lipoprotein 53 mg/dL; Protein, Total 7.6 g/dL (6.4-8.2); Triglycerides 85 mg/dL; Very Low Density Lipoprotein 17 mg/dL (5-40)
== END | disposition home or self-care (01) ==
LOC: LAB 07:04
PROVIDERS: PCP Family Medicine; Referring Provider Internal Medicine Cardiovascular Disease; Visit Provider Internal Medicine Cardiovascular Disease
DX: E78.00 Pure hypercholesterolemia, unspecified (principal); E78.2 Mixed hyperlipidemia
CPT/HCPCS: 36415; 80061; 80076

== ENCOUNTER → 2021-09-14 | Outpatient (CLI) | payer OTHER, SELFPAY ==
--- NOTE | 2021-09-14 12:41 | ECHOD_ITS ---
Reason For Study: HYPERTENSION Procedure This was a 2D Doppler, Color Flow transthoracic echocardiogram. Exam performed in department. Left Ventricle Normal LV size. Mild global left ventricular systolic dysfunction. The estimated ejection fraction is 40 %. There is mild to moderate global hypokinesis of the left ventricle. Right Ventricle Normal RV size. Normal systolic function. Atria Normal left atrium. Normal right atrium. Mitral Valve Normal mitral valve. Tricuspid Valve Normal tricuspid valve. Mild tricuspid valve insufficiency. Pulmonary artery systolic pressure is 26 mmHg. Aortic Valve Trisinus/trileaflet aortic valve. Pulmonic Valve Normal pulmonic valve. Great Vessels Normal aortic root. The pulmonary artery is normal size. Normal inferior vena cava. Pericardium/Pleural No pericardial effusion. MMode/2D Measurements & Calculations LVIDd: 5.2 cm IVSd: 0.85 cm Ao root diam: 3.5 cm LVIDs: 3.3 cm LVPWd: 1.0 cm RVDd: 3.9 cm FS: 36.3 % LAV(MOD-bp): 56.2 ml LVAd ap4: 39.0 cm2 LVAd ap2: 36.3 cm2 LAV(MOD-bp) Indexed: 27.7 ml/m2 LVLd ap4: 8.8 cm LVLd ap2: 9.1 cm LAV(MOD-sp2): 47.0 ml EDV(MOD-sp4): 139.1 ml EDV(MOD-sp2): 120.1 ml LAV(MOD-sp4): 67.4 ml EDV(sp4-el): 146.2 ml EDV(sp2-el): 122.6 ml LVAs ap4: 25.4 cm2 LVAs ap2: 24.8 cm2 LVLs ap4: 7.6 cm LVLs ap2: 8.4 cm ESV(MOD-sp4): 72.7 ml ESV(MOD-sp2): 61.8 ml ESV(sp4-el): 72.1 ml ESV(sp2-el): 62.0 ml EF(MOD-sp4): 47.7 % EF(MOD-sp2): 48.5 % EF(sp4-el): 50.7 % SV(MOD-sp4): 66.4 ml SV(MOD-sp2): 58.2 ml SV(sp4-el): 74.1 ml LA dimension(2D): 3.7 cm RA A4 area: 15.2 cm2 Doppler Measurements & Calculations Ao V2 max: 118.8 cm/sec LV V1 max: 92.4 cm/sec PA V2 max: 94.2 cm/sec Ao max P.7 mmHg LV V1 max P.4 mmHg Ao V2 mean: 86.5 cm/sec LV V1 mean P.0 mmHg Ao mean P.3 mmHg LV V1 mean: 66.2 cm/sec Ao V2 VTI: 26.9 cm LV V1 VTI: 19.0 cm TR max hal: 242.9 cm/sec TR max P.6 mmHg ECHO/Echo Complete Interpretation Summary Normal LV size. Mild global left ventricular systolic dysfunction. The estimated ejection fraction is 40 %. Pulmonary artery systolic pressure is 26 mmHg. Ordering Physician: Jose Rafael Gaona Referring Physician: Jerad Liu Performed By: Jacklyn Rey, JENNY, RVT
== END | disposition home or self-care (01) ==
PROVIDERS: PCP Family Medicine; Visit Provider Internal Medicine Cardiovascular Disease
DX: I42.8 Other cardiomyopathies (principal)
CPT/HCPCS: 93306

== ENCOUNTER → 2021-10-09 | Outpatient (CLI) | payer OTHER, SELFPAY ==
[2021-10-09 09:50] LABS: Hematocrit 43.2 % (40-54); Hemoglobin 15.3 g/dL (13.0-16.5); Mean Corp Hgb Conc 35.4 g/dL (32-36); Mean Corpuscular Hgb 33.6 pg (27.0-32.0); Mean Corpuscular Volume 94.7 fL (80-94); Mean Platelet Vol. 8.6 fl (6.2-12.0); Platelet Count 248 K/mm3 (150-450); RBC Distribution Width CV 12.3 % (11.6-14.6); RBC Distribution Width SD 43.1 fl (35.1-43.9); Red Blood Count 4.56 M/mm3 (4.6-6.2); White Blood Count 8.2 K/mm3 (4.4-11.0)
[2021-10-09 10:21] LABS: BNP,B-Type NATRIURETIC PEPTIDE 16.6 pg/mL (0-100)
[2021-10-09 10:26] LABS: Anion Gap 5 (5-15); BUN 15 mg/dL (7-18); BUN/Creat Ratio 18.7 RATIO (10-20); Calcium,Total 9.1 mg/dL (8.5-10.1); Chloride 107 mmol/L (98-107); EST Glomerular Filtration Rate 104 mL/min (>60); Est Glom Filt Rate - Afr Amer 125 mL/min (>60); Glucose 115 mg/dL (74-106); Potassium 3.9 mmol/L (3.5-5.1); Sodium Level 138 mmol/L (136-145); T4 Total, Thyroxin 11.1 ug/dL (4.5-12.1); Thyroid Stim Hormone (TSH) 0.76 uIU/mL (0.358-3.74)
== END | disposition home or self-care (01) ==
LOC: LAB 08:32
PROVIDERS: PCP Family Medicine; Referring Provider Nurse Practitioner Family; Visit Provider Nurse Practitioner Family
DX: I42.8 Other cardiomyopathies (principal); R06.02 Shortness of breath; R53.83 Other fatigue; G47.10 Hypersomnia, unspecified
CPT/HCPCS: 36415; 80048; 83880; 84436; 84443; 85027

== ENCOUNTER → 2023-09-27 | Outpatient (CLI) | payer MEDICAID, SELFPAY ==
[2023-09-27 08:56] LABS: AST(SGOT) 21 U/L (15-37); Alanine Aminotransfer ALT/SGPT 18 U/L (16-61); Albumin, Serum 3.9 g/dL (3.2-5.0); Alkaline Phosphatase 40 U/L (45-117); Bilirubin, Direct 0.18 mg/dL (0.00-0.30); Cholesterol 177 mg/dL (200); Globulin 3.8 g/dL (2.2-4.2); High Density Lipoprotein 47 mg/dL; Protein, Total 7.7 g/dL (6.4-8.2); Triglycerides 107 mg/dL; Very Low Density Lipoprotein 21 mg/dL (5-40)
== END | disposition home or self-care (01) ==
PROVIDERS: PCP Family Medicine; Referring Provider Nurse Practitioner Family; Visit Provider Nurse Practitioner Family
DX: I42.8 Other cardiomyopathies (principal); E78.2 Mixed hyperlipidemia; E78.1 Pure hyperglyceridemia
CPT/HCPCS: 36415; 80061; 80076

== ENCOUNTER → 2023-10-20 | Outpatient (CLI) | payer MEDICAID, SELFPAY ==
--- NOTE | 2023-10-20 13:57 | ECHOCS_ITS ---
Version 2 Reason For Study: Re-Evaluate EF Procedure This was a 2D Doppler, Color Flow transthoracic echocardiogram. Contrast injection was performed. Exam performed in department. Left Ventricle Normal LV size. The left ventricular ejection fraction is 45 %. Stage 1 diastolic dysfunction. No regional wall motion abnormalities noted. Right Ventricle Normal right ventricle. Atria Normal left atrium. Normal right atrium. Patent foramen ovale. Mitral Valve Normal mitral valve. Tricuspid Valve Normal tricuspid valve. Mild (1+) tricuspid valve insufficiency. Pulmonary artery systolic pressure is 30 mmHg. Pulmonic Valve Normal pulmonic valve. Great Vessels Normal aortic root. Pericardium/Pleural No pericardial effusion. Medication 22 gauge I.V. with prn adaptor inserted into right arm. Diluted definity 2ml given slow IV push to enhance endocardial definition. Performed a rapid injection of agitated mix of 9 cc saline and 1cc air to assess for atrial septal defect. MMode/2D Measurements & Calculations LVIDd: 4.8 cm IVSd: 0.88 cm Ao root diam: 3.5 cm LVIDs: 3.6 cm LVPWd: 0.98 cm LA dimension: 3.7 cm RVDd: 3.8 cm FS: 23.9 % LAV(MOD-bp): 43.3 ml LVAd ap4: 36.2 cm2 SV(MOD-sp4): 59.0 ml LAV(MOD-bp) Indexed: 21.4 ml/m2 LVLd ap4: 8.2 cm LAV(MOD-sp2): 35.7 ml EDV(MOD-sp4): 131.5 ml LAV(MOD-sp4): 42.2 ml EDV(sp4-el): 134.8 ml LVAs ap4: 25.2 cm2 LVLs ap4: 7.3 cm ESV(MOD-sp4): 72.4 ml ESV(sp4-el): 73.7 ml EF(MOD-sp4): 44.9 % EF(sp4-el): 45.3 % SV(sp4-el): 61.1 ml LA A4 area: 16.9 cm2 RA A4 area: 16.9 cm2 TAPSE: 1.3 cm Time Measurements MV dec time: 0.26 sec Doppler Measurements & Calculations MV E max santiago: 39.4 cm/sec Lat Peak E' Santiago: 10.2 cm/sec Med Peak E' Santiago: 7.1 cm/sec MV A max santiago: 57.3 cm/sec E/E' lat: 3.8 E/E' med: 5.5 MV E/A: 0.69 MV V2 max: 70.0 cm/sec MV P1/2t max santiago: 43.6 cm/sec Ao V2 max: 112.4 cm/sec MV max P.0 mmHg MV P1/2t: 93.0 msec Ao max P.1 mmHg MV V2 mean: 37.9 cm/sec MV dec slope: 137.3 cm/sec2 Ao V2 mean: 76.7 cm/sec MV mean P.69 mmHg Ao mean P.7 mmHg MV V2 VTI: 14.9 cm MVA(P1/2t): 2.4 cm2 Ao V2 VTI: 21.3 cm AV (velocity ratio): 0.79 LV V1 max: 82.8 cm/sec PA V2 max: 115.2 cm/sec TR max santiago: 257.4 cm/sec LV V1 max P.7 mmHg PA max PG (full): 3.1 mmHg TR max P.5 mmHg LV V1 mean P.7 mmHg PA V2 mean: 66.0 cm/sec LV V1 mean: 60.9 cm/sec PA mean PG (full): 1.1 mmHg LV V1 VTI: 16.9 cm ECHO/Echo Complete W/ Contrast Interpretation Summary The left ventricular ejection fraction is 45 %. Normal LV size. Patent foramen ovale. Stage 1 diastolic dysfunction. Pulmonary artery systolic pressure is 30 mmHg. Mild (1+) tricuspid valve insufficiency. Compared to previous study, the left ventricular systolic function has improved .. Ordering Physician: Denver Steiner Referring Physician: Denver Steiner Performed By: Herrera Litlte RCS
== END | disposition home or self-care (01) ==
PROVIDERS: PCP Family Medicine; Referring Provider Nurse Practitioner Family; Visit Provider Nurse Practitioner Family
DX: I42.8 Other cardiomyopathies (principal); I44.7 Left bundle-branch block, unspecified
CPT/HCPCS: 93306; Q9957; A4216; C8929

== ENCOUNTER → 2024-11-13 | Outpatient (CLI) | payer MEDICARE, SELFPAY ==
--- OUTSIDE RECORDS SUMMARY | 2024-06-18 10:02 | XMS RPT_ITS ---
Author Name Auto Generated Organization OHIP Care Team Providers Care Infection Control Coordinator Name Role Phone FERNY ROMEO Consulting Unavailable KARLOS DUVAL Attending Unavailable KARLOS DUVAL Primary Care Unavailable KARLOS DUVAL Admitting Unavailable PROVIDER, UNKNOWN Consulting Unavailable PROVIDER, UNKNOWN Consulting Unavailable PROVIDER, UNKNOWN Consulting Unavailable [facility] Attending Unavailable PROBLEMS No Problem Records Found PROCEDURES No Procedure Records Found RESULTS FINAL SURGICAL PATHOLOGY REPORT Observed : 06/18/2024 11:35 AM Status: F Source: [facility] .Pathology Reports Accession: Collected Date/Time: Received Date/Time: Pathologist: [id number] 06/18/2024 11:35 EDT 06/20/2024 08:12 EDT XANDER GOETZ MD Final Surgical Pathology Report DIAGNOSIS: DESCENDING COLON, POLYPECTOMY: - POLYPOID COLONIC MUCOSAL FRAGMENT COMMENT: [facility] [id number] CLINICAL INFORMATION: POSITIVE COLOGUARD SPECIMEN: A DESCENDING COLON POLYP GROSS DESCRIPTION: All parts labelled with patient name and [id number] Received in formalin labeled descending colon polyp is 1 jarrell-brown tissue fragment measuring 0.2 x 0.1 cm. TS-1 Ilana Vallejo, Grossing Watch Hairspring Assembler/ Dr. Xander Goetz, Pathologist Performed by Ilana Vallejo MICROSCOPIC DESCRIPTION: The microscopic examination is performed, except in the case of Gross Only. Verified by Pathology Report verified by [facility] XANDER GOETZ Sign out Date: 06/21/2024 15:40 Performing Lab: [facility], [address] [place] [address] Pathology Dept Disclaimer If ancillary studies were utilized, the following Laboratory Developed Test (LDT) disclaimer will apply: Under CLIA requirements, [facility] is qualified to perform high complexity testing. For all ancillary stains, positive and negative controls stain appropriately. Performance characteristics of immunohistochemical and chromogenic in-situ hybridization tests have been determined by [facility]. These tests are used for clinical purposes, They should not be regarded as investigational or for research. . HISTORY AND PHYSICAL EXAM Observed: 06/2024 10:02 AM Status: F Source: [facility] HISTORY & PHYSICAL NAME ACCOUNT SEX AGE ADMIT DISCHARGE PT MED. RECORD# NUMBER DATE DATE TYPE VERONA, [id number] M 63 06/18/24 2 KARLOS Kennedy [address] ROOM: [facility] DATE OF : 58 DICTATING PHYSICIAN: Karlos Duval CHIEF COMPLAINT: Colon cancer screening. HISTORY OF PRESENT ILLNESS: Mr. Rhoades is a 63-year-old male that presents for colon cancer screening. He denies any worrisome signs or symptoms at this time. He has not had a prior colonoscopy. He did have a recent positive Cologuard Test. PAST MEDICAL HISTORY: (1) Obesity. (2) Cardiomyopathy. MEDICATIONS: See APR. ALLERGIES: No known drug allergies. SOCIAL HISTORY: Noncontributory. REVIEW OF SYSTEMS: Ten system review of systems are negative. PHYSICAL EXAMINATION GENERAL APPEARANCE: In general, he is alert, oriented, and appropriate with no acute distress. VITAL SIGNS: On exam, he is afebrile. Vital signs stable, within normal limits. LUNGS: Lungs are clear to auscultation bilaterally. HEART: Regular rate and rhythm. ABDOMEN: Soft, nontender, and nondistended. EXTREMITIES: Extremities show no cyanosis, edema, or gross deformities. NEUROLOGIC: GCS of 15. Cranial nerves II-XII are grossly intact, 5/5 muscle strength in all groups, and sensation grossly intact. IMPRESSION: This is a 63-year-old male requiring screening colonoscopy. PLAN: I discussed the risks, benefits, and alternatives of colonoscopy. All questions were answered, and he voiced understanding and agreement with the plan and Page 1 of 2 KARLOS RHOADES History & Physical KARLOS RHOADES :1960 procedure. Dictated By: Karlos Duval MD 06/18/24 10:27 JOB #: [id number] Transcribed By: am 06/18/24 10:31 Electronically signed by: E-SIGN DR. DUVAL 06/20/24 13:21 Update to H&P: [ ] No changes: I have examined the patient and reviewed the H&P and there are no changes. [ ] As previously dictated with the following changes: ____ ____ ____ PHYSICIAN SIGNATURE: TIME: DATE: Page 2 of 2 KARLOS RHOADES History & Physical LIPID PANEL, STANDARD Collected: 03/26/2024 9:14 AM Status: F Source: [facility] TYPE CODE TESTS RESULT OUT OF RANGE REFERENCE UNITS LAB [id number] CHOLESTEROL, TOTAL 181 Normal <200 mg/dL LAB [id number] HDL CHOLESTEROL 59 Normal > OR = 40 mg/dL LAB [id number] TRIGLYCERIDES 72 Normal <150 mg/dL LAB [id number] LDL-CHOLESTEROL 106 High mg/dL (calc) Result Comment: Reference ra nge: <100 Desirable range <100 mg/dL for primary prevention; <70 mg/dL for patients with CHD or diabetic patients with > or = 2 CHD risk factors. LDL-C is now calculated using the Cooper calculation, which is a validated novel method providing better accuracy than the Friedewald equation in the estimation of LDL-C. Reyes JUAREZ et al. FLACO. 2013;310(19): 7235-8421 (http://education.[employer]/faq/NIV228) LAB [id number] CHOL/HDLC RATIO 3.1 Normal <5.0 (calc) LAB [id number] NON HDL CHOLESTEROL 122 Normal <130 mg/dL (calc) Result Comment: For patients with diabetes plus 1 major ASCVD risk factor, treating to a non-HDL-C goal of <100 mg/dL (LDL-C of <70 mg/dL) is considered a therapeutic option. Performed By: #### 5363, 760 0, [address] #### [facility] [address], [address] [place] [phone] Nursing Program Chair: Stevie Quintana MD COMPREHENSIVE METABOLIC PANEL Collected : 03/26/2024 9:14 AM Status: F Source: [facility] TYPE CODE TESTS RESULT OUT OF RANGE REFERENCE UNITS LAB [id number] GLUCOSE 93 Normal 65-99 mg/dL Result Comment: Fasting reference interval LAB [id number] UREA NITROGEN (BUN) 25 Normal 7-25 mg/dL LAB [id number] CREATININE 1.12 Normal 0.70-1.35 mg/dL LAB [id number] EGFR 73 Normal > OR = 60 mL/min/1 .73m2 LAB [id number] BUN/CREATININE RATIO SEE NOTE: 6- (calc) Result Comment: Not Reported : BUN and Creatinine are within reference range. LAB [id number] SODIUM 139 Normal 135-146 mmol/L LAB [id number] POTASSIUM 4.2 Normal 3.5-5.3 mmol/L LAB [id number] CHLORIDE 106 Normal 98-110 mmol/L LAB [id number] CARBON DIOXIDE 26 Normal 20-32 mmol/L LAB [id number] CALCIUM 9.2 Normal 8.6-10.3 mg/dL LAB [id number] PROTEIN, TOTAL 7.6 Normal 6.1-8.1 g/dL LAB [id number] ALBUMIN 4.6 Normal 3.6-5.1 g/dL LAB [id number] GLOBULIN 3.0 Normal 1.9-3.7 g/dL (calc) LAB [id number] ALBUMIN/GLOBUL IN RATIO 1.5 Normal 1.0-2.5 (calc) LAB [id number] BILIRUBIN, TOTAL 0.5 Normal 0.2-1.2 mg/dL LAB [id number] ALKALINE PHOSPHATASE 31 Low 35-144 U/L LAB [id number] AST 16 Normal 10-35 U/L LAB [id number] ALT 9 Normal 9-46 U/L Performed By: #### 5363, 760 0, 35623 #### [facility] [address], [address] [place] [address] Nursing Program Chair: Stevie Quintana MD PSA, TOTAL Collected: 5 9:14 AM Status: F Source: [facility] TYPE CODE TESTS RESULT OUT OF RANGE REFERENCE UNITS LAB [id number] PSA, TOTAL 0.48 Normal < OR = 4.00 ng/mL Result Comment: The total PS A value from this assay system is standardized against the WHO standard. The test result will be approximately 20% lower when compared to the equimolar-standardized total PSA (Oil Ehsan). Comparison of serial PSA results should be interpreted with this fact in mind. This test was performed using the Siemens chemiluminescent method. Values obtained from different assay methods cannot be used interchangeably. PSA levels, regardless of value, should not be interpreted as absolute evidence of the presence or absence of disease. Performed By: #### 5363, 760 0, [address]09 #### [facility] [address], [address] [place], [place] [id number] Nursing Program Chair: Stevie Quintana MD ALLERGIES DATE TYPE / CODE NAME / CODE REACTION SEVERITY SOURCE Miscellaneous Allergy/[id number](SN ED CT) No Known Drug Allergies Moderate (Severity Modifier) (Qualifier Value) [facility] ENCOUNTERS ADMIT/DISCHARGE ACCOUNT NUMBER ADMITTING ENCOUNTER CLASS LOCATION SOURCE 06/18/2024/ [id number] KARLOS DUVAL Ambulatory Buildin Room: [address] 03/26/2024 Ambulatory Building:[facility] PAYERS ENCOUNTER GUARANTOR PAYER SUBSCRIBER SOURCE 06/18/2024 KARLOS CÁRDENAS: [id number] [address] [address]Xrg: () Primary Insurance:[employer] MEDICARE OUTPATIENTPolicy Number: [id number] Date:Plan Name:B3 KARLOS CÁRDENAS: [id number] [address] [address] [facility]
--- OUTSIDE RECORDS SUMMARY | 2024-06-18 10:02 | XMS RPT_ITS ---
Author Name Auto Generated Organization OHIP Care Team Providers Care Geospatial Systems Integrator Name Role Phone FERNY ROMEO Consulting Unavailable KARLOS DUVAL Attending Unavailable KARLOS DUVAL Primary Care Unavailable KARLOS DUVAL Admitting Unavailable PROVIDER, UNKNOWN Consulting Unavailable PROVIDER, UNKNOWN Consulting Unavailable PROVIDER, UNKNOWN Consulting Unavailable [facility] Attending Unavailable PROBLEMS No Problem Records Found PROCEDURES No Procedure Records Found RESULTS FINAL SURGICAL PATHOLOGY REPORT Observed : 06/18/2024 11:35 AM Status: F Source: [facility] .Pathology Reports Accession: Collected Date/Time: Received Date/Time: Pathologist: [id number] 06/18/2024 11:35 EDT 06/20/2024 08:12 EDT XANDER GOETZ MD Final Surgical Pathology Report DIAGNOSIS: DESCENDING COLON, POLYPECTOMY: - POLYPOID COLONIC MUCOSAL FRAGMENT COMMENT: [facility] [id number] CLINICAL INFORMATION: POSITIVE COLOGUARD SPECIMEN: A DESCENDING COLON POLYP GROSS DESCRIPTION: All parts labelled with patient name and [id number] Received in formalin labeled descending colon polyp is 1 jarrell-brown tissue fragment measuring 0.2 x 0.1 cm. TS-1 Ilana Vallejo, Grossing Entry Level Programmer/ Dr. Xander Goetz, Pathologist Performed by Ilana Vallejo MICROSCOPIC DESCRIPTION: The microscopic examination is performed, except in the case of Gross Only. Verified by Pathology Report verified by [facility] XANDER GOETZ Sign out Date: 06/21/2024 15:40 Performing Lab: [facility], [address] [place] [address] Pathology Dept Disclaimer If ancillary studies were utilized, the following Laboratory Developed Test (LDT) disclaimer will apply: Under CLIA requirements, [facility] is qualified to perform high complexity testing. For all ancillary stains, positive and negative controls stain appropriately. Performance characteristics of immunohistochemical and chromogenic in-situ hybridization tests have been determined by [facility]. These tests are used for clinical purposes, They should not be regarded as investigational or for research. . HISTORY AND PHYSICAL EXAM Observed: 06/2024 10:02 AM Status: F Source: ON LICENSE OF [facility] HISTORY & PHYSICAL NAME ACCOUNT SEX AGE ADMIT DISCHARGE PT MED. RECORD# NUMBER DATE DATE TYPE VERONA, [id number] M 63 06/18/24 2 KARLOS Kennedy [id number] ROOM: [facility] DATE OF : 58 DICTATING PHYSICIAN: Karlos [...] Karlos Duval MD 06/18/24 10:27 JOB #: [id number] Transcribed By: am 06/18/24 10:31 Electronically signed [...] RESULT OUT OF RANGE REFERENCE UNITS LAB [id number] CHOLESTEROL, TOTAL 181 Normal <200 mg/dL LAB [id number] HDL CHOLESTEROL 59 Normal > OR = 40 mg/dL LAB [id number] TRIGLYCERIDES 72 Normal <150 mg/dL LAB [id number] LDL-CHOLESTEROL 106 High mg/dL (calc) Result Comment: [...] LDL-C. Reyes JUAREZ et al. FLACO. 2013;310(19): 6419-9698 (http://education.CityHour/faq/[email or web address]) LAB [id number] CHOL/HDLC RATIO 3.1 Normal <5.0 (calc) LAB [id number] NON HDL CHOLESTEROL 122 Normal <130 mg/dL (calc) Result Comment: For patients with diabetes plus 1 major ASCVD risk factor, treating to a non-HDL-C goal of <100 mg/dL (LDL-C of <70 mg/dL) is considered a therapeutic option. Performed By: #### 5363, 760 0, [id number] #### [facility] [address], [address] [place] [id number] [employer]: Stevie Quintana MD COMPREHENSIVE METABOLIC PANEL Collected : 03/26/2024 9:14 AM Status: F Source: [facility] TYPE CODE TESTS RESULT OUT OF RANGE REFERENCE UNITS LAB [id number] GLUCOSE 93 Normal 65-99 mg/dL Result Comment: Fasting reference interval LAB [id number] UREA NITROGEN (BUN) 25 Normal 7-25 mg/dL LAB [id number] CREATININE 1.12 Normal 0.70-1.35 mg/dL LAB [id number] EGFR 73 Normal > OR = 60 mL/min/1 .73m2 LAB [id number] BUN/CREATININE RATIO SEE NOTE: 6- (calc) Result Comment: Not Reported : BUN and Creatinine are within reference range. LAB [id number] SODIUM 139 Normal 135-146 mmol/L LAB [id number] POTASSIUM 4.2 Normal 3.5-5.3 mmol/L LAB [id number] CHLORIDE 106 Normal 98-110 mmol/L LAB [id number] CARBON DIOXIDE 26 Normal 20-32 mmol/L LAB [id number] CALCIUM 9.2 Normal 8.6-10.3 mg/dL LAB [id number] PROTEIN, TOTAL 7.6 Normal 6.1-8.1 g/dL LAB [id number] ALBUMIN 4.6 Normal 3.6-5.1 g/dL LAB [id number] GLOBULIN 3.0 Normal 1.9-3.7 g/dL (calc) LAB [id number] ALBUMIN/GLOBUL IN RATIO 1.5 Normal 1.0-2.5 (calc) LAB [id number] BILIRUBIN, TOTAL 0.5 Normal 0.2-1.2 mg/dL LAB [id number] ALKALINE PHOSPHATASE 31 Low 35-144 U/L LAB [id number] AST 16 Normal 10-35 U/L LAB [id number] ALT 9 Normal 9-46 U/L Performed By: #### 5363, 760 0, [address]144 #### [facility] [address], [address] [place] [address] [employer]: Stevie Quintana MD PSA, TOTAL Collected: 5 9:14 AM Status: F Source: [facility] TYPE CODE TESTS RESULT OUT OF RANGE REFERENCE UNITS LAB [id number] PSA, TOTAL 0.48 Normal < OR = 4.00 ng/mL Result Comment: The total PS A value from this assay system is standardized against the WHO standard. The test result will be approximately 20% lower when compared to the equimolar-standardized total PSA (Oli Ehsan). Comparison of serial PSA results should be interpreted with this fact in mind. This test was performed using the Siemens chemiluminescent method. Values obtained from different assay methods cannot be used interchangeably. PSA levels, regardless of value, should not be interpreted as absolute evidence of the presence or absence of disease. Performed By: #### 5363, 760 0, [address]35 #### [facility] [address], [address] [place], [place] [id number] [employer]: Stevie Quintana MD ALLERGIES DATE TYPE / CODE NAME / CODE REACTION SEVERITY SOURCE Miscellaneous Allergy/[id number](SN ED CT) No Known Drug Allergies Moderate (Severity Modifier) (Qualifier Value) [facility] ENCOUNTERS ADMIT/DISCHARGE ACCOUNT NUMBER ADMITTING ENCOUNTER CLASS LOCATION SOURCE 06/18/2024/ [id number] KARLOS DUVAL Ambulatory Buildin Room: [address] 03/26/2024 Ambulatory Building:[facility] PAYERS ENCOUNTER GUARANTOR PAYER SUBSCRIBER SOURCE 06/18/2024 KARLOS CÁRDENAS: [id number] [address] [address]Vmi: () Primary Insurance:[employer]IC[employer] OUTPATIENTPolicy Number: [id number] Date:Plan Name:B3 KARLOS CÁRDENAS: [id number] [address] [address] [facility]
--- NOTE | 2024-11-13 08:14 | EKG12_ITS ---
Test Reason : ROUTINE Blood Pressure : */* mmHG Vent. Rate : 62 BPM Atrial Rate : 62 BPM P-R Int : 214 ms QRS Dur : 158 ms QT Int : 460 ms P-R-T Axes : 54 34 61 degrees QTcB Int : 466 ms Sinus rhythm with 1st degree A-V block Left bundle branch block Abnormal ECG Confirmed by KATHRYN DAVILA, JOSE RAFAEL ([id number]), index editor RHIANNON MON ([id number]) on 11/13/2024 1:01:54 PM Referred By: Jose Rafael Gaona Confirmed By: JOSE RAFAEL GAONA MD
--- NOTE | 2024-11-13 08:14 | EKG12_ITS ---
Test Reason : ROUTINE Blood Pressure : */* mmHG Vent. Rate : 62 BPM Atrial Rate : 62 BPM P-R Int : 214 ms QRS Dur : 158 ms QT Int : 460 ms P-R-T Axes : 54 34 61 degrees QTcB Int : 466 ms Sinus rhythm with 1st degree A-V block Left bundle branch block Abnormal ECG Confirmed by KATHRYN DAVILA, JOSE RAFAEL ([id number]), electronic news gathering editor RHIANNON MON ([id number]) on 11/13/2024 1:01:54 PM Referred By: Jose Rafael Gaona Confirmed By: JOSE RAFAEL GAONA MD
== END | disposition home or self-care (01) ==
LOC: PSN 08:14
PROVIDERS: PCP Family Medicine; Referring Provider Internal Medicine Cardiovascular Disease; Visit Provider Internal Medicine Cardiovascular Disease
DX: I44.7 Left bundle-branch block, unspecified (principal)
CPT/HCPCS: 93005

== ENCOUNTER → 2024-12-03 | Outpatient (CLI) | payer MEDICARE, SELFPAY ==
--- NOTE | 2024-12-03 12:47 | ECHOD_ITS ---
Reason For Study Reason For Study: DILATED CARDIOMYOPATHY Procedure Myocardial strain analysis was performed in this exam to aid in the assessment of cardiac function. This was a 2D Doppler, Color Flow transthoracic echocardiogram. Exam performed in department. Left Ventricle Normal LV size. The global longitudinal strain = -16.5% (abnormal). The estimated ejection fraction is 48 %. Stage 1 diastolic dysfunction. No regional wall motion abnormalities noted. Right Ventricle Normal RV size. Normal systolic function. Atria The left atrium is mildly enlarged. Normal right atrium. Mitral Valve Normal mitral valve. Tricuspid Valve Normal tricuspid valve. Aortic Valve Normal aortic valve. Pulmonic Valve Normal pulmonic valve. Great Vessels Normal aortic root. The pulmonary artery is normal size. Inferior vena cava collapse with respiration. Pericardium/Pleural No pericardial effusion. MMode/2D Measurements & Calculations LVIDd: 4.6 cm IVSd: 1.0 cm LVOT diam: 2.2 cm LVIDs: 3.6 cm LVPWd: 0.82 cm LVOT area: 3.8 cm2 RVDd: 4.6 cm FS: 21.0 % Ao root diam: 3.4 cm LAV(MOD-bp): 69.7 ml LVAd ap4: 35.5 cm2 LAV(MOD-bp) Indexed: 34.1 ml/m2 LVLd ap4: 8.9 cm LAV(MOD-sp2): 63.4 ml EDV(MOD-sp4): 113.8 ml LAV(MOD-sp4): 62.4 ml EDV(sp4-el): 120.5 ml LVAs ap4: 23.8 cm2 LVLs ap4: 7.7 cm ESV(MOD-sp4): 59.3 ml ESV(sp4-el): 62.3 ml EF(MOD-sp4): 47.9 % EF(sp4-el): 48.3 % LVAd ap2: 38.8 cm2 SV(MOD-sp4): 54.5 ml SV(MOD-sp2): 75.5 ml LVLd ap2: 9.0 cm SI(MOD-sp4): 26.7 ml/m2 SI(MOD-sp2): 36.9 ml/m2 EDV(MOD-sp2): 134.9 ml EDV(sp2-el): 142.3 ml LVAs ap2: 23.5 cm2 LVLs ap2: 7.6 cm ESV(MOD-sp2): 59.5 ml ESV(sp2-el): 61.8 ml EF(MOD-sp2): 55.9 % SV(sp4-el): 58.1 ml LA dimension(2D): 3.5 cm LA A4 area: 21.7 cm2 RA A4 area: 16.1 cm2 TAPSE: 1.8 cm Time Measurements MV dec time: 0.21 sec Doppler Measurements & Calculations MV E max santiago: 36.6 cm/sec Lat Peak E' Santiago: 9.8 cm/sec Med Peak E' Santiago: 7.4 cm/sec MV A max santiago: 54.1 cm/sec E/E' lat: 3.7 E/E' med: 4.9 MV E/A: 0.68 Ao V2 max: 115.1 cm/sec LV V1 max: 99.5 cm/sec MV dec slope: 173.7 cm/sec2 Ao max P.3 mmHg LV V1 max P.0 mmHg Ao V2 mean: 80.5 cm/sec LV V1 mean P.1 mmHg Ao mean P.0 mmHg LV V1 mean: 66.5 cm/sec Ao V2 VTI: 22.4 cm LV V1 VTI: 19.7 cm AV (velocity ratio): 0.88 HILARY(I,D): 3.4 cm2 HILARY(V,D): 3.3 cm2 SV(LVOT): 75.3 ml PA V2 max: 104.1 cm/sec ECHO/Echo Complete Interpretation Summary Normal LV size. The global longitudinal strain = -16.5% (abnormal). The estimated ejection fraction is 48 %. Stage 1 diastolic dysfunction. Ordering Physician: Jose Rafael Gaona Referring Physician: Jerad Liu MD Performed By: Koko Bonilla RDCS
== END | disposition home or self-care (01) ==
LOC: CVS 12:44
PROVIDERS: PCP Family Medicine; Referring Provider Internal Medicine Cardiovascular Disease; Visit Provider Internal Medicine Cardiovascular Disease
DX: I42.0 Dilated cardiomyopathy (principal); I44.7 Left bundle-branch block, unspecified
CPT/HCPCS: 93306